=== PATIENT | female | born 1975 ===

== ENCOUNTER 2024-10-28 16:01 | Outpatient (REF) | payer BC, SELFPAY ==
[2024-10-28 19:46] LABS: ALT 16 U/L (14-59); AST 17 U/L (15-37); Albumin 3.4 g/dL (3.4-5.0); Alkaline Phosphatase 98 U/L (46-116); Anion Gap 6.8 mmol/L (3-11); BUN 11 mg/dL (7-18); Bilirubin, Total 0.3 mg/dL (0.2-1.0); CO2 26.2 mmol/L (21.0-32.0); CREATININE 0.7 mg/dL (0.55-1.02); Calcium 8.7 mg/dL (8.5-10.1); Calculated LDL 118 mg/dL (<100); Chloride 105 mmol/L (98-107); Cholesterol 198 mg/dL (<200); Estimated GFR 105.95 (mL/min/1.73m2); Glucose 96 mg/dL (74-106); HDL Cholesterol 52 mg/dL (>or=50); Potassium 4.2 mmol/L (3.5-5.1); Sodium 138 mmol/L (136-145); Total Protein 7.2 g/dL (6.4-8.2); Triglyceride 143 mg/dL (<150)
== END 2024-10-28 16:02 | disposition home or self-care (01) ==
LOC: NCHCN 16:01
PROVIDERS: Visit Provider Nurse Practitioner Family
DX: Z13.1 Encounter for screening for diabetes mellitus (principal); Z13.220 Encounter for screening for lipoid disorders
CPT/HCPCS: 80053; 80061